=== PATIENT | female | born 1960 ===

== ENCOUNTER 2017-04-07 15:30 | Emergency (ER) | payer MEDICAID, OTHER ==
[2017-04-07 15:30] VITALS: O2SAT 99
[2017-04-07] MEDS ORDERED: LABETALOL HYDROCHLORIDE 5 MG/ML SOL IV ONE ×2 (15:54→16:04)
[2017-04-07] MEDS ORDERED: ONDANSETRON HCL 4 MG/2 ML SOL IV ONE (15:54)
[2017-04-07 15:55] VITALS: PULSE 93; RESP 24; TEMP 99.6
[2017-04-07 16:04] LABS: BASOPHILS % (AUTO) 1 % (0-3); EOSINOPHILS % (AUTO) 4 % (0-9); HEMATOCRIT 44 % (35-47); MEAN CORPUSCULAR VOLUME 87 fL (81-99); MONOCYTES % (AUTO) 4.3 % (0-12); NEUTROPHILS % (AUTO) 61.2 % (37-80)
[2017-04-07] MEDS ORDERED: ONDANSETRON HCL 4 MG/2 ML SOL ONE (16:04)
[2017-04-07 16:23] LABS: CALCIUM 9.9 mg/dl (8.5-10.1); GLOM FILT RATE 69 mL/min (>60); POTASSIUM 4.1 mMol/L (3.5-5.1); SODIUM 141 mMol/L (136-145)
[2017-04-07 16:49] VITALS: BP 144/96
[2017-04-07 16:49] LABS: APPEARANCE,URINE Clear; BILIRUBIN,URINE 1+ (NEGATIVE); COLOR,URINE Yellow; GLUCOSE, URINE (UA) NEGATIVE (NEGATIVE); KETONES,URINE 1+ (NEGATIVE); LEUKOCYTE ESTERASE ,URINE 1+ (NEGATIVE); NITRATE,URINE NEGATIVE (NEGATIVE); OCCULT BLOOD,URINE NEGATIVE (NEG-TRACE); UROBILINOGEN,URINE 0.2 (0.2-1.0 EU)
[2017-04-07 17:08] LABS: ICTOTEST,URINE NEGATIVE (NEGATIVE); RBC,URINE 0-2 (0-3AV/HPF); WBC,URINE 30-40 (0-5AV/HPF)
== END 2017-04-07 17:30 | disposition home or self-care (01) | DRG 690 ==
LOC: ED 15:30
DX: N39.0 Urinary tract infection, site not specified (principal); I16.9 Hypertensive crisis, unspecified
CPT/HCPCS: 80048; 81001; 84484; 85025; 87088; 93005; 96374; 96375; 99284; J2405

== ENCOUNTER 2019-04-30 09:01 | Day surgery (SDC) | payer MEDICARE ==
[2019-04-30] MEDS ORDERED: FENTANYL 100MCG/2ML SOL ONE (09:23)
[2019-04-30] MEDS ORDERED: LIDOCAINE HCL 1% MPF 30 SOL ONE (09:23)
[2019-04-30] MEDS ORDERED: PROPOFOL 500 MG/50 ML EMU IV ONE (09:23)
[2019-04-30] MEDS ORDERED: LIDOCAINE HCL 2% MPF 10 ML SOL ONE (09:42)
[2019-04-30 11:27] VITALS: BP 106/69; PULSE 56; RESP 16; TEMP 97.2; O2SAT 99
== END 2019-04-30 11:50 | disposition home or self-care (01) | DRG 558 ==
LOC: SURG 09:01
PROVIDERS: ATTEND Orthopaedic Surgery
DX: M65.331 Trigger finger, right middle finger (principal); E11.9 Type 2 diabetes mellitus without complications
CPT/HCPCS: 82962; J3010; A6402; J2001; J2704